=== PATIENT | male | born 1965 | race Caucasian/White ===

== ENCOUNTER 2022-06-03 11:58 | Emergency (ER) | payer OTHER, SELFPAY ==
[2022-06-03] MEDS ORDERED: Iopamidol 370 76% 100 ML VIAL ONE (12:47)
[2022-06-03] MEDS ORDERED: Morphine 4 MG/ML VIAL ONE (13:53)
[2022-06-03 14:06] LABS: Hemoglobin 14.1 g/dL (13.5-17.5); Mean Corpuscular HGB CONC 33.1 g/dL (32.0-36.0); Mean Corpuscular Hemoglobin 31.5 pg (27.0-33.0); Mean Corpuscular Volume 95.3 fl (81.2-95.1); Mean Platelet Volume 10.3 fl (7.4-10.4); Platelet Count 226 10x3/uL (150-450); RBC Distribution Width 13.3 % (11.5-14.5); Red Blood Cell (RBC) Count 4.47 10x6/uL (4.32-5.72); White Blood Cell (WBC) Count 10.5 10x3/uL (3.5-10.5)
[2022-06-03 14:15] LABS: MDiff Complete? YES; Manual Diff?? YES
[2022-06-03 14:20] LABS: INR-International Normal Ratio 0.9; Prothrombin Time 9.8 sec (9.5-12.1)
[2022-06-03 14:23] LABS: ALT (SGPT) 15 U/L (8-55); AST (SGOT) 17 U/L (5-34); Albumin 3.9 g/dL (3.5-5.0); Alkaline Phosphatase 106 U/L (40-110); Anion Gap 9 mmol/L (10-20); BUN (Urea Nitrogen) 13 mg/dL (8.4-25.7); Bilirubin, Total 0.4 mg/dL (0.2-1.2); Calc. Creatinine Clearance 0 mL/min (70-130); Calcium 9.7 mg/dL (7.8-10.44); Carbon Dioxide 30 mmol/L (22-29); Chloride 104 mmol/L (98-107); Estimated GFR 103; Globulin 3.3 g/dL (2.4-3.5); Glucose 80 mg/dL (70-105); Potassium 4.3 mmol/L (3.5-5.1); Protein, Total 7.2 g/dL (6.0-8.3); Sodium 139 mmol/L (136-145)
[2022-06-03 14:41] LABS: Band 1 % (5-11); Eosinophils 3 % (0-10); Lymphocytes 20 % (21-51); Monocytes 2 % (0-10); Neutrophil 69 % (42-75); Reactive Lymphocytes 5 % (0-10)
[2022-06-03 14:42] LABS: Platelet Morphology Comment Appears Adequate
== END 2022-06-03 14:58 | disposition home or self-care (01) ==
LOC: CSHERS 11:58
DX: J44.1 Chronic obstructive pulmonary disease with (acute) exacerbation (principal); M54.41 Lumbago with sciatica, right side; N40.0 Benign prostatic hyperplasia without lower urinary tract symptoms; I10 Essential (primary) hypertension; F17.210 Nicotine dependence, cigarettes, uncomplicated
CPT/HCPCS: 71045; 71275; 80053; 85025; 85610; 85730; 96374; J2270; Q9967

== ENCOUNTER 2023-06-19 10:45 | Observation (INO) | payer SELFPAY ==
[2023-06-19] MEDS ORDERED: Aspirin Chewable 81 MG TAB ONE (11:24)
[2023-06-19] MEDS ORDERED: Nitroglycerin 0.4 MG TAB 1 EACH ONE ×2 (11:25→11:27)
[2023-06-19 11:47] LABS: Hematocrit 45.8 % (38.8-50.0); Hemoglobin 15.3 g/dL (13.5-17.5); MDiff Complete? YES; Mean Corpuscular HGB CONC 33.4 g/dL (32.0-36.0); Mean Corpuscular Hemoglobin 31.8 pg (27.0-33.0); Mean Corpuscular Volume 95.2 fl (81.2-95.1); Mean Platelet Volume 10.7 fl (7.4-10.4); Platelet Count 228 10x3/uL (150-450); Red Blood Cell (RBC) Count 4.81 10x6/uL (4.32-5.72); White Blood Cell (WBC) Count 11.2 10x3/uL (3.5-10.5)
[2023-06-19 11:50] LABS: ALT (SGPT) 17 U/L (8-55); AST (SGOT) 15 U/L (5-34); Albumin 4.2 g/dL (3.5-5.0); Alkaline Phosphatase 122 U/L (40-110); Anion Gap 12 mmol/L (10-20); BUN (Urea Nitrogen) 15 mg/dL (8.4-25.7); Bilirubin, Total 0.4 mg/dL (0.2-1.2); Calc. Creatinine Clearance 0 mL/min (70-130); Calcium 9.1 mg/dL (7.8-10.44); Carbon Dioxide 27 mmol/L (22-29); Chloride 102 mmol/L (98-107); Estimated GFR 101; Globulin 2.8 g/dL (2.4-3.5); Glucose 102 mg/dL (70-105); Lipase 17 U/L (8-78); Magnesium 2.1 mg/dL (1.6-2.6); Potassium 4.4 mmol/L (3.5-5.1); Sodium 137 mmol/L (136-145); Troponin I Less than 0.010 ng/mL (< 0.028)
[2023-06-19] MEDS ORDERED: Iopamidol 370 76% 100 ML VIAL ONE (11:57)
[2023-06-19 12:13] LABS: Eosinophils 4 % (0-10); Lymphocytes 34 % (21-51); Monocytes 7 % (0-10); Neutrophil 52 % (42-75); Reactive Lymphocytes 3 % (0-10)
[2023-06-19 12:14] LABS: RBC Morph Comment Within Normal Limits
[2023-06-19 12:15] LABS: Platelet Adequacy Comment Appears Adequate
[2023-06-19] MEDS ORDERED: fentaNYL 50 mcg/mL 1 mL Vial ONE (13:30)
[2023-06-19] MEDS ORDERED: Ipratropium/Albuterol 3 ML NEB ONE (15:29)
[2023-06-19] MEDS ORDERED: methylPREDNISolone Sod Succ/PF 125 MG/2 ML VIAL IVP SCH (15:30)
[2023-06-19 16:00] LABS: Troponin I Less than 0.010 ng/mL (< 0.028)
[2023-06-19] MEDS ORDERED: Nitroglycerin 0.4 MG TAB (25 Tab Bottle) SL PRN (18:56)
[2023-06-19] MEDS ORDERED: Nicotine 21 MG PATCH TD PRN (18:56)
[2023-06-19] MEDS ORDERED: Ipratropium/Albuterol 3 ML NEB NEB PRN (18:56)
[2023-06-19] MEDS ORDERED: Acetaminophen 325 MG TAB PO PRN (18:56)
[2023-06-19] MEDS ORDERED: Ondansetron ODT 4 MG TAB PO PRN (18:56)
[2023-06-19] MEDS ORDERED: Ondansetron PF 4 MG/2 ML Vial IVP PRN (18:56)
[2023-06-19] MEDS ORDERED: Benzonatate 100 MG CAP PO PRN (19:00)
[2023-06-19 21:46] VITALS: BMI 39.2
[2023-06-19] MEDS ORDERED: cefTRIAXone\\ROCEPHIN 1 GM in Sodium Chloride 0.9% 100 ML IVPB SCH (22:00)
[2023-06-19] MEDS: methylPREDNISolone Sod Succ 40 MG VIAL IVP SCH (22:06)
[2023-06-20 00:06] LABS: SARS-CoV-2 NAA Rapid Test Not Detected (NotDetected)
[2023-06-20 01:44] LABS: Troponin I Less than 0.010 ng/mL (< 0.028)
[2023-06-20] MEDS ORDERED: Mometasone/Formoterol 200/5 60 PUFF INH SCH (06:30)
[2023-06-20] MEDS ORDERED: Lisinopril 10 MG TAB PO SCH (09:00)
[2023-06-20] MEDS ORDERED: Aspirin Chewable 81 MG TAB PO SCH (09:00)
[2023-06-20] MEDS ORDERED: Tamsulosin HCl 0.4 MG CAP PO SCH (09:00)
[2023-06-20] MEDS ORDERED: Hydrochlorothiazide 25 MG TAB PO SCH (09:00)
[2023-06-20 12:23] VITALS: BP 133/74; TEMP 98.3
[2023-06-20] MEDS: methylPREDNISolone Sod Succ 40 MG VIAL IVP SCH (12:40)
== END 2023-06-20 13:36 | disposition home or self-care (01) ==
LOC: CSHERS 10:45 → CSHTELE 15:24
PROVIDERS: ADMIT Family Medicine; ATTEND Hospitalist
DX: J44.9 Chronic obstructive pulmonary disease, unspecified (principal); I10 Essential (primary) hypertension; E66.01 Morbid (severe) obesity due to excess calories; N40.0 Benign prostatic hyperplasia without lower urinary tract symptoms; R07.89 Other chest pain; M19.90 Unspecified osteoarthritis, unspecified site; Z68.39 Body mass index [BMI] 39.0-39.9, adult; F17.210 Nicotine dependence, cigarettes, uncomplicated; Z88.8 Allergy status to other drugs, medicaments and biological substances; Z79.82 Long term (current) use of aspirin; Z79.899 Other long term (current) drug therapy; Z79.891 Long term (current) use of opiate analgesic
CPT/HCPCS: 71045; 71275; 80053; 80061; 83690; 83735; 83880; 84443; 84484; 85025; 87081; 87430; 93005; 93010; 94640; 94664; 94760; 94762; 96361; 96372; 96374; 96375; 96376; G0378; J0696; J1650; J2920; J2930; J3010; J3490; J7611; J7620; Q9967; U0002

== ENCOUNTER 2024-08-06 09:08 | Emergency (ER) | payer OTHER ==
[2024-08-06] MEDS ORDERED: Ketorolac Tromethamine 30 MG (1 mL) VIAL ONE (09:42)
== END 2024-08-06 11:14 | disposition home or self-care (01) ==
LOC: CSHERS 09:08
DX: M25.531 Pain in right wrist (principal); F17.210 Nicotine dependence, cigarettes, uncomplicated; J44.9 Chronic obstructive pulmonary disease, unspecified
CPT/HCPCS: 96372; 99283; J1885

== ENCOUNTER 2024-12-08 04:43 | Emergency (ER) | payer OTHER ==
[2024-12-08] MEDS ORDERED: Ketorolac Tromethamine 30 MG (1 mL) VIAL ONE (04:54)
[2024-12-08 05:09] LABS: Bilirubin Neg (Negative); Blood, Urine 50 (Negative); Glucose, Urine (Dipstick) Normal (Negative); Ketone, Urine Negative (Negative); Leukocyte 25 (Negative); Nitrite Negative (Negative); Protein, Urine (Dipstick) 15 mg/dl (Neg-Trace); pH, Urine 6.5 (5.0-9.0)
[2024-12-08 05:15] LABS: Clarity Hazy (Clear)
[2024-12-08 05:16] LABS: CAUTI Indications for Culture Pelvic or flank pain; Squamous Epithelial 0-3 HPF (0-3)
[2024-12-08 05:17] LABS: Bacteria/HPF Rare-Few HPF (None Seen); Urine Culture Reflex No No
[2024-12-08] MEDS ORDERED: cefTRIAXone (ROCEPHIN) 2 GM VIAL ONE (06:00)
[2024-12-08 06:14] LABS: #Basophils 0.03 10x3/uL (0.0-0.2); #Monocytes 0.98 10x3/uL (0.0-1.1); #Neutrophils 7.03 10x3/uL (1.5-8.4); %Basophils 0.3 % (0.0-2.0); %Eosinophils 0.9 % (0.0-6.0); %Lymphocytes 29.7 % (18.0-47.0); %Monocytes 8.4 % (0.0-10.0); %Neutrophils 60.5 % (40.0-75.0); Hematocrit 41.3 % (38.8-50.0); Hemoglobin 14.3 g/dL (13.5-17.5); Mean Corpuscular HGB CONC 34.6 g/dL (32.0-36.0); Mean Corpuscular Hemoglobin 31.9 pg (27.0-33.0); Mean Corpuscular Volume 92.2 fL (81.2-95.1); Mean Platelet Volume 10.3 fL (7.4-10.4); Platelet Count 169 10x3/uL (150-450); RBC Distribution Width 13.9 % (11.5-14.5); Red Blood Cell (RBC) Count 4.48 10x6/uL (4.32-5.72)
[2024-12-08 06:35] LABS: Anion Gap 13 mmol/L (10-20); BUN (Urea Nitrogen) 14 mg/dL (8.4-25.7); Calc. Creatinine Clearance 0 mL/min (70-130); Calcium 9.8 mg/dL (7.8-10.44); Carbon Dioxide 23 mmol/L (23-31); Chloride 107 mmol/L (98-107); Estimated GFR 72; Glucose 96 mg/dL (80-115); Sodium 139 mmol/L (136-145)
== END 2024-12-08 07:08 | disposition short-term general hospital (02) ==
LOC: CSHERS 04:43
DX: N13.2 Hydronephrosis with renal and ureteral calculous obstruction (principal); I10 Essential (primary) hypertension; E11.9 Type 2 diabetes mellitus without complications
CPT/HCPCS: 36415; 74176; 81001; J0696; J1885